=== PATIENT | male | born 1980 | race Caucasian/White ===

== ENCOUNTER 2016-09-16 15:04 | Emergency (ER) | payer OTHER ==
[~2016-09-16] VITALS: Ht 180.3 cm; Wt 91.2 kg
[~2016-09-16 15:04] MED LIST: CITALOPRAM HBR20 MG PO; ESCITALOPRAM OX10 MG PO; FLEXERIL10 MG PO; IBUPROFEN800 MG PO; LIDEX 0.05% OIN15 GM TP; MOTRIN800 MG PO; PEN-VEE K,VEET500 MG PO; SERTRALINE HCL100 MG PO; ULTRAM50 MG PO
[2016-09-16] MEDS ORDERED: FLEXERIL10 MG PO (17:06)
[2016-09-16] MEDS ORDERED: NAPROSYN500 MG PO (17:06)
[2016-09-16 17:40] VITALS: BP 123/70
== END 2016-09-16 17:42 | disposition home or self-care (01) ==
LOC: EME 15:04
DX: S29.011A Strain of muscle and tendon of front wall of thorax, initial encounter (principal); X58.XXXA Exposure to other specified factors, initial encounter
CPT/HCPCS: 93005; 99281; 99283

== ENCOUNTER 2017-08-22 13:04 | Emergency (ER) | payer OTHER ==
[~2017-08-22] VITALS: Ht 180.3 cm; Wt 98.5 kg
[~2017-08-22 13:04] MED LIST changes: +NAPROSYN500 MG PO
[2017-08-22] MEDS ORDERED: INDOCIN50 MG PO (15:30)
[2017-08-22] MEDS ORDERED: LIDODERM 5% P1 PATCH TD (15:30)
[2017-08-22] MEDS ORDERED: VALIUM5 MG PO (15:30)
[2017-08-22 15:47] VITALS: BP 127/78
== END 2017-08-22 15:47 | disposition home or self-care (01) ==
LOC: EME 13:04
DX: S39.012A Strain of muscle, fascia and tendon of lower back, initial encounter (principal); M54.41 Lumbago with sciatica, right side; X50.0XXA Overexertion from strenuous movement or load, initial encounter; Y99.0 Civilian activity done for income or pay
CPT/HCPCS: 99281; 99284